=== PATIENT | female | born 1990 | race Two or more races ===

== ENCOUNTER 2016-05-07 18:54 | Emergency (ER) | payer MEDICAID ==
[~2016-05-07] VITALS: Ht 157.5 cm; Wt 77.1 kg
[~2016-05-07 18:54] MED LIST: PREN-96 PO
[2016-05-07 19:19] VITALS: BP 110/79
== END 2016-05-07 23:48 | disposition left against medical advice (07) ==
LOC: ER 18:59
DX: R06.02 Shortness of breath (principal); R20.0 Anesthesia of skin; Z53.21 Procedure and treatment not carried out due to patient leaving prior to being seen by health care provider

== ENCOUNTER 2017-11-07 13:46 | Emergency (ER) | payer MEDICAID ==
[~2017-11-07] VITALS: Ht 157.5 cm; Wt 79.4 kg
[2017-11-07 13:51] VITALS: BP 141/90
[2017-11-07 14:14] LABS: Urine WBC None Seen /hpf (0 - 5)
[2017-11-07 14:31] LABS: Urine Bacteria FEW /hpf (None Seen); Urine Blood Negative /uL (Negative); Urine Mucus FEW (None Seen); Urine Specific Gravity 1.028 (1.001-1.035)
[2017-11-07 14:47] LABS: Basophils # (auto) 0 uL; Basophils % (auto) 0.6 % (0.0-2.0); Eosinophils # (auto) 0.6 uL; Eosinophils % (auto) 6.9 % (0.0-7.0); Hematocrit 41.4 % (36.0-46.0); Hemoglobin 14.3 g/dL (12.2-16.2); Lymphocytes # (auto) 1.8 uL; Lymphocytes % (auto) 21.9 % (10.0-50.0); Mean Corpuscular Hemoglobin 31.5 pg (28.0-32.0); Mean Corpuscular Hgb Conc. 34.6 g/dL (32.0-36.0); Mean Corpuscular Volume 91.1 fL (80.0-100.0); Monocytes # (auto) 0.5 uL; Monocytes % (auto) 6.3 % (0.0-12.0); Neutrophils # (auto) 5.3 uL; Neutrophils % (auto) 64.3 % (37.0-80.0); Platelet Count (auto) 207 10^3/uL (140-450); Red Blood Cells 4.54 10^6/uL (4.0-5.20); Red Cell Distribution Width 12.1 % (11.8-14.3); White Blood Cell 8.2 10^3/uL (4.4-10.8)
[2017-11-07 15:04] LABS: Albumin 3.4 g/dL (3.4-5.0); Calcium 8.1 mg/dL (8.5-10.1); Potassium 3.5 mmol/L (3.5-5.1)
[2017-11-07 15:07] LABS: BUN/Creatinine Ratio 18.5
[2017-11-07 15:09] LABS: Bilirubin, Total 0.5 mg/dL (0.2-1.0)
== END 2017-11-07 15:58 | disposition home or self-care (01) ==
LOC: ER 13:51
DX: N39.0 Urinary tract infection, site not specified (principal); F17.210 Nicotine dependence, cigarettes, uncomplicated; Z88.8 Allergy status to other drugs, medicaments and biological substances; Z88.5 Allergy status to narcotic agent
CPT/HCPCS: 36415; 74176; 80053; 81001; 81025; 85025

== ENCOUNTER 2020-08-29 19:03 | Emergency (ER) | payer MEDICAID, OTHER ==
[~2020-08-29] VITALS: Ht 157.5 cm; Wt 95.3 kg
[2020-08-29 19:09] VITALS: BP 139/93
[2020-08-29] MEDS ORDERED: ACETAMINOPHEN 500 MG TAB PO ONE (22:15)
[2020-08-29] MEDS ORDERED: IBUPROFEN 800 MG TAB PO ONE (22:15)
== END 2020-08-29 23:23 | disposition home or self-care (01) ==
LOC: ER 19:07
DX: S70.12XA Contusion of left thigh, initial encounter (principal); F17.210 Nicotine dependence, cigarettes, uncomplicated; M25.562 Pain in left knee; M25.552 Pain in left hip; X50.1XXA Overexertion from prolonged static or awkward postures, initial encounter; Y93.89 Activity, other specified; Y92.89 Other specified places as the place of occurrence of the external cause; Y99.8 Other external cause status
CPT/HCPCS: 73502; 73560; 81025; 93971